=== PATIENT | male | born 1955 | race Hispanic/Latino ===

== ENCOUNTER 2021-01-29 10:26 | Emergency (ER) | payer MEDICARE ==
[2021-01-29 11:05] LABS: BASOPHILS % (AUTO) 1.1 % (0.0-5.0); EOSINOPHILS % (AUTO) 15.4 % (0.0-8.0); HEMATOCRIT 46.3 % (42-54); LYMPHOCYTES % (AUTO) 18.7 % (21.0-51.0); MEAN CORPUSCULAR HEMOGLOBIN 30.1 pg (27.0-33.0); MEAN CORPUSCULAR HGB CONC 34.8 g/dL (32.0-36.0); MEAN CORPUSCULAR VOLUME 86.7 fL (79-99); MONOCYTES % (AUTO) 7.3 % (3.0-13.0); NEUTROPHILS % (AUTO) 57.4 % (40.0-77.0); PLATELET COUNT (AUTO) 278 K/uL (130-400); RED BLOOD CELL COUNT(AUTO) 5.34 MIL/uL (4.50-6.20); RED CELL DISTRIBUTION WIDTH 13.2 % (11.0-15.5); WHITE BLOOD COUNT (AUTO) 8.8 K/uL (4.8-10.8)
[2021-01-29 11:14] LABS: CREATININE 0.9 mg/dL (0.5-1.5); POTASSIUM 4.2 mmol/L (3.5-5.1)
[2021-01-29 11:18] LABS: BILIRUBIN,TOTAL 0.7 mg/dL (0.2-1.0); TOTAL PROTEIN, SERUM 7.7 g/dL (6.0-8.3)
[2021-01-29] MEDS ORDERED: CEFTRIAXONE SODIUM 1 GM ONE (11:31)
[2021-01-29 12:37] LABS: APPEARANCE,URINE Clear (CLEAR); BILIRUBIN,URINE Negative (NEGATIVE); COLOR,URINE Dark Yellow (YELLOW); GLUCOSE, URINE (UA) >=1000 mg/dL (NEGATIVE); KETONES,URINE Negative (NEGATIVE); LEUKOCYTE ESTERASE ,URINE Negative (NEGATIVE); NITRATE,URINE Positive (NEGATIVE); OCCULT BLOOD,URINE Negative (NEGATIVE); PROTEIN,URINE Negative (NEGATIVE)
[2021-01-29 12:48] LABS: BACTERIA,URINE None Seen /HPF (None Seen); RBC,URINE 0-1 /HPF (0-1); SQUAMOUS EPITHELIAL CELL,UR 0-2 /HPF (0-2); WBC,URINE 0-1 /HPF (0-1); YEAST,URINE BUDDING Few /HPF (None Seen)
== END 2021-01-29 13:16 | disposition home or self-care (01) ==
LOC: EDH 10:26
DX: N41.0 Acute prostatitis (principal); I10 Essential (primary) hypertension; E11.9 Type 2 diabetes mellitus without complications; E78.00 Pure hypercholesterolemia, unspecified
CPT/HCPCS: 36415; 74176; 80053; 81001; 82150; 83690; 85025; 87088; 93005; 96365; 99285; J0696

== ENCOUNTER 2023-05-20 16:00 | Emergency (ER) | payer MEDICARE, OTHER ==
[2023-05-20] VITALS (9 sets, daily range): BP systolic 137–179; BP diastolic 82–100; PULSE 63–93; RESP 12–16; O2SAT 96
[~2023-05-20] VITALS: Ht 177.8 cm; Wt 96.6 kg
[2023-05-20] MEDS ORDERED: TRAM50TA4 PO (16:24)
[2023-05-20] MEDS ORDERED: 0.9%NACL 1000ML 1,000 ML IV ONE (16:30)
[2023-05-20 17:09] LABS: CREATININE 0.8 mg/dL (0.5-1.5); POTASSIUM 3.6 mmol/L (3.5-5.1)
[2023-05-20] MEDS ORDERED: IOHEXOL-350 75 ML VIAL IV ONE (17:22)
[2023-05-20] MEDS: GLUCAGON 1MG KIT 1 MG ML IV SCH ×2 (18:30→21:20)
[2023-05-20] MEDS ORDERED: METOCLOPRAMIDE 10 MG/2 ML VIAL IVP ONE (18:30)
[2023-05-20] MEDS ORDERED: NITROGLYCERIN 1GM OINT 1 INCH/1GM TD ONE (18:30)
[2023-05-20] MEDS ORDERED: INSULIN HUMULIN R 100 UNIT/ML 3ML IV ONE (19:00)
[2023-05-20] MEDS ORDERED: MIDAZOLAM HCL 1 MG/ML 2ML VIAL ONE (19:31)
[2023-05-20] MEDS ORDERED: GLYCOPYRROLATE 1 MG/5 ML SYRINGE ONE (20:08)
[2023-05-20] MEDS ORDERED: ONDANSETRON 4MG INJ ONE (20:43)
== END 2023-05-20 22:45 | disposition home or self-care (01) ==
LOC: EDH 16:00
DX: S10.15XA Superficial foreign body of throat, initial encounter (principal); R13.10 Dysphagia, unspecified; X58.XXXA Exposure to other specified factors, initial encounter; Y93.89 Activity, other specified; Y92.89 Other specified places as the place of occurrence of the external cause; Y99.8 Other external cause status
CPT/HCPCS: 99285; 80048; 82948; 36415; 88305; 70491; 43239; 43249; 43247; J3490; J2250; Q9967; A4620; A4215; A4223; A4657 ×3; A7002; A4222; J7030; A4606; J1610; J2405; J2765

== ENCOUNTER 2024-10-16 10:33 | Emergency (ER) | payer MEDICARE, OTHER ==
[~2024-10-16] VITALS: Ht 177.8 cm; Wt 93.0 kg
[2024-10-16] MEDS: GLUCAGON 1MG KIT 1 MG ML IV STA (11:11)
--- NOTE | 2024-10-16 12:03 | HMCIMG ---
CT NECK SOFT TISS W/O CONTRAST HISTORY: dysphagia/ foreign body TECHNIQUE: CT soft tissue neck was performed without contrast. Coronal and sagittal reformats were obtained. CT was performed with one or more of the following dose reduction techniques: Automated exposure control, adjustment of the mA and/or kV according to the patient's size, or use of the iterative reconstruction technique. FINDINGS: The noncontrast nature this study limits evaluation for mass and fluid collection. The parapharyngeal fat planes are preserved. No bulky lymphadenopathy. No soft tissue inflammation or fluid collection seen. The epiglottis and pre-epiglottic fat are preserved. The prevertebral soft tissues appear within normal limits. Evaluation of the oral cavity is degraded due to streak artifact from dental work. Visualized paranasal sinuses and mastoid air cells are clear. Lung apices are normally aerated. IMPRESSION: No radiopaque foreign body is seen.
--- NOTE | 2024-10-16 12:49 | ERN ---
General Chief Complaint: Other Problems Stated Complaint: FOREIGN BODY STUCK IN THROAT Time Seen by MD: 10:34 Source: patient, family History of Present Illness Initial Comments In his is a 69-year-old gentleman coming in to be evaluated for dysphagia. Patient states that he has had this problem before were if he eats fast the meat products we will get stuck in his throat. He had a similar episode in July. He states that in his occasion he was eating some chicken and he felt as if it got lodged in his throat he states after that he could not pass any liquids or other type of nutrients. He is here for further evaluation. Allergies: Coded Allergies: No Known Allergies (Unverified Allergy, Unknown, 05/20/23) Past Medical History Past Medical History: Diabetes-Type II, High Cholesterol, Hypertension Past Surgical History: Other Surgical History Other: RT LEG SX ROS Dictation CONSTITUTIONAL: No chills, no fever, no weakness, no diaphoresis, no malaise. HEAD/FACE: No signs of trauma. EENT: No eye pain, no blurred vision, no tearing, no double vision, no ear pain, no ear discharge, no nose pain, no nasal congestion, no throat pain, no throat swelling, no mouth pain. RESPIRATORY: No cough, no orthopnea, no SOB, no stridor, no wheezing. CARDIOVASCULAR: No chest pain, no edema, no palpitations, no syncope. GASTROINTESTINAL/ABDOMINAL: No abdominal pain, no constipation, no diarrhea, nausea, vomiting. GENITOURINARY: No abnormal discharge, no dysuria, no frequent urination, no hematuria. No complaints of pain in the genitals. MUSCULOSKELETAL: No back pain, no gout, no joint pain, no joint swelling, no muscle pain, no muscle stiffness, no neck pain. INTEGUMENTARY: No change in color, no change in hair/nails, no dryness, no lesion, no lumps, no rash. NEUROLOGICAL/PSYCH: No anxiety, not depressed, no emotional problem, no headache, no numbness, no pre-existing deficit, no history of seizures, no tremors, no weakness. HEMATOLOGIC/LYMPHATIC: Not anemic, no history of blood clots, no apparent ble eding, no bruising, glands not swollen. All Systems Negative, Except as Noted. Physical Exam Physical Exam Dictation VITAL SIGNS: Reviewed. GENERAL APPEARANCE: Alert, oriented x3, no acute distress, obese. HEAD AND FACE: Non-traumatic. EYES: PERRL, pink conjunctivas, eyelid no trauma, anterior chamber clear. EARS: Pinnas intact and no signs of trauma or erythema. Ear canals clear and no discharge. TMs no erythema. NOSE: No discharge, no bleeding. OROPHARYNX: Mouth normal, teeth no caries, tongue pink. Pharynx clear, no erythema. Tonsils no exudates, no abscesses noted. Mucous membrane moist. NECK: Supple, non-tender, no thyromegaly, no masses, no JVD, no bruits. BREAST: Deferred. CHEST: No tenderness, no crepitus, no paradoxical movement, no retractions. LUNGS: Clear, well-ventilated, symmetric, no rales, no wheezing, no rhonchi, no stridor, good breath sounds bilaterally. HEART: Regular rate, regular rhythm, no murmur, no gallops. VASCULAR: No peripheral edema. ABDOMEN: Soft, positive bowel sounds, nondistended, no guarding, nontender, no rebound, no masses no hepatomegaly, no splenomegaly, no Meehan's sign, no hernias. RECTAL: Deferred. GENITAL: Deferred. NEUROLOGICAL: Normal speech, gross motor function intact, gross sensory function intact. MUSCULOSKELETAL: Neck nontender, full range of motion, back nontender, full range of motion. EXTREMITIES: Nontender, full range of motion. SKIN: Color pink, dry, no turgor, no rash, no lacerations, no abrasions, no contusions. LYMPHATICS: Deferred. Results Laboratory and Microbiology Lab and Micro Result Laboratory Tests Test 10/16/24 12:41 Whole Blood Glucose 219 MG/DL (70-110) H Labs Reviewed?: Yes EKG/XRAY/US/CT/MRI CT Scan Comment [place] [id number] IMAGING REPORT Signed PATIENT: NIDIA VILLARREAL MR#: [id number] : 1955 SEX: M AGE: 69 LOCATION: ED ORDER [id number] STATUS: REG REPORT#: [id number] SERVICE 1052 REASON: dysphagia/ foreign body ORDERING PHYSICIAN: STEVIE MEEHAN MD PROCEDURE: NKSOFTI WO - CT NECK SOFT TISS W/O CONTRAST CT NECK SOFT TISS W/O CONTRAST HISTORY: dysphagia/ foreign body TECHNIQUE: CT soft tissue neck was performed without contrast. Coronal and sagittal reformats were obtained. CT was performed with one or more of the following dose reduction techniques: Automated exposure control, adjustment of the mA and/or kV according to the patient's size, or use of the iterative reconstruction technique. FINDINGS: The noncontrast nature this study limits evaluation for mass and fluid collection. The parapharyngeal fat planes are preserved. No bulky lymphadenopathy. No soft tissue inflammation or fluid collection seen. The epiglottis and pre-epiglottic fat are preserved. The prevertebral soft tissues appear within normal limits. Evaluation of the oral cavity is degraded due to streak artifact from dental work. Visualized paranasal sinuses and mastoid air cells are clear. Lung apices are normally aerated. IMPRESSION: No radiopaque foreign body is seen. DICTATED BY: SHEILA BENAVIDES MD DATE: 10/16/24 1159 ELECTRONICALLY SIGNED BY: SHEILA BENAVIDES MD DATE: 10/16/24 1203 [facility] MDM: Differential diagnosis: Dysphagia, foreign body, esophageal obstruction Patient is a 69-year-old gentleman coming in to be evaluated for dysphagia secondary to a piece of the meat got that got stuck in his throat. CT did not disclose acute findings. Patient received some glucagon and states that the food particle past. P.o. challenge tolerated. Patient will be discharged in stable condition with a diagnosis status post foreign body improved. ED Course Orders Procedure Category Date Status Time Ct Neck Soft Tiss W/O CT 10/16/24 Resulted Contrast 10:52 Glucagon 1mg Kit PHA 10/16/24 Complete (Glucagon 1mg Kit) 10:53 Bedside Glucose CPOE 10/16/24 Transmitted Fingerstick 10:53 Current Medications Medications (Trade) Dose Ordered Sig/Bert Route PRN Reason Start Time Stop Time Status Last Admin Dose Admin Glucagon (Glucagon 1mg Kit) 1 mg ONCE STAT IV 10/16/24 10:53 10/16/24 10:55 DC 10/16/24 11:11 Vital Signs Date Time Temp Pulse Resp B/P (MAP) Pulse Ox O2 Delivery O2 Flow Rate FiO2 10/16/24 10:39 97.9 99 18 152/87 99 Room Air 0 DX & DISP Disposition: Discharge Departure Impression: Primary Impression: Food impaction of esophagus Condition: Stable Additional Instructions: FOLLOW-UP WITH PRIMARY CARE PROVIDER IN 1 TO 2 DAYS. TAKE MEDICATIONS DIRECTED HERE IN THE EMERGENCY ROOM. OKAY TO CONTINUE HOME MEDICATIONS UNLESS OTHERWISE DISCUSSED DURING YOUR VISIT IN THE EMERGENCY ROOM TODAY. RETURN TO YOUR NEAREST EMERGENCY ROOM IF SYMPTOMS WORSEN OR IF THERE IS NO IMPROVEMENT. CALL 911 IF YOU NEED IMMEDIATE ASSISTANCE. TAKE TYLENOL [id number] NEEDED AND IF NO CONTRAINDICATIONS ARE PRESENT. INCREASE ORAL HYDRATION. A WOUND CULTURE OR URINE CULTURE WAS ORDERED HERE IN THE EMERGENCY ROOM DEPARTMENT PLEASE FOLLOW-UP WITH PRIMARY CARE PROVIDER AND ADVISE THEM TO GET REPEAT PORTS FROM OUR FACILITY. IF YOU HAD ANY KO WRAP/SPLINTS THAT WERE APPLIED HERE, PLEASE DO NOT REMOVE THEM UNTIL YOU SEE YOUR PRIMARY CARE OR SPECIALTY. Referrals: Referrals: NONE (PCP) ZOE BERUMEN MD, LUIS A MD Time of Disposition: 12:49 STEVIE MEEHAN MD Oct 16, 2024 12:49
--- NOTE | 2024-10-16 13:27 | NUR ---
PO CHALLENGE SUCCESSFUL; PATIENT VOICES HE IS ABLE TO SWALLOW WITHOUT DIFFICULTY; NO COUGHING NOTED AT TIME OF ASSESSMENT.
[2024-10-16 13:31] VITALS: BP 155/89; PULSE 97; RESP 16; TEMP 98; O2SAT 99
== END 2024-10-16 13:39 | disposition home or self-care (01) ==
LOC: EDH 10:33
DX: T18.128A Food in esophagus causing other injury, initial encounter (principal); I10 Essential (primary) hypertension; E78.00 Pure hypercholesterolemia, unspecified; E11.9 Type 2 diabetes mellitus without complications; W44.F3XA Food entering into or through a natural orifice, initial encounter; Y93.89 Activity, other specified; Y92.89 Other specified places as the place of occurrence of the external cause; Y99.8 Other external cause status
CPT/HCPCS: 99285; 96374; 70490; 82948; J1610